=== PATIENT | male | born 1930 | race Caucasian/White ===

== ENCOUNTER 2018-01-12 13:34 | Inpatient (IN) ==
--- NOTE | 2018-01-12 13:52 | DR.MBACK ---
HPI - Time Seen Time seen: 14:40 - PCP Primary Care Physician: ANUM GUNN - HPI Comment HPI Comment: PATIENT FELL YESTERDAY. DENIES CHEST PAIN, HEADACHE OR ABDOMINAL PAIN. FEELS WEAK CURRENTLY. NO DYSURIA. - Complaint Chief Complaint Doctors Comments: PATIENT FELL AT HOME AND WAS UNABLE TO GET UP. LOWER BACK PAIN. Chief Complaint:: EMS OUT TO PT FOR LIFE ASSIST FOR SEVERAL DAY'S PT'S SITTER STATES ON 01/11/18 PT HAS FELL AND WAS NOT ABLE TO GET UP AND HER BROTHER FOUND HIM IN FOUR HOURS ,, PTS SITTER STATES HE USUALLY CAN WALK , AND DO FOR HIS SELF BUT NOT NOW AND PT ONLY C/O HIS BUTTOCKS HURTING AND HE STATES " YAW HAVE ONE HOUR AND I NEED TO GO"..BR - Reviewed Nurses Notes Review: Yes - Source History Provided: Patient, Friend, EMS - Mode of Arrival Mode of Arrival: EMS - Timing Onset of Chief Complaint: 01/11/18 - Duration Duration: Constant - Location Back Pain Location: BACK - Severity Severity: Moderate - Quality Quality: Sharp - Context Onset: Spontaneous History of: None - Modifying Factors Worsened By: None - Associated Signs and Symptoms Back Pain Symptoms: None Numbness: None Weakness: None PMH - PMH Past Medical History: Yes Past Medical History: CHF Past Surgical History: No - Family History History of Family Medical Conditions: No - Social History Does patient currently use any type of tobacco product: Yes Have you used tobacco products in the last 12 months: Yes Type of Tobacco Use: Cigarettes Does any household member use tobacco: No Alcohol Use: None Do you use any recreational Drugs:: No Lives With: Alone Lives Where: Home - infectious screening In the last 2 months have you had wt loss of >10#?: NO Have you had fever, night sweats or hemotysis?: No Have you traveled outside the country in the last 6 months?: No ROS - Review of Systems Constitutional: Weakness, Fatigue. negative: Chills, Fever Eyes: No Symptoms Reported Respiratoy: Short of Breath Gastrointestinal/Abdominal: No Symptoms Reported Neurological: Weakness Musculoskeletal: Back Pain, Back Integumentary: No Symptoms Reported, Dryness Hematologic/Lymphatic: No Symptoms Reported, Easy Bruising Endocrine: No Symptoms Reported Psychiatric: No Symptoms Reported PE - General Limitations: No Limitations General Appearance: Alert - Head Head Exam: Normal Inspection - Eyes Eye exam: PERRL, EOMI. negative: Conjunctival Injection - ENT ENT Exam: Normal Oropharynx, Normal External Ear Exam, TM's Normal Bilaterally , Other (DECREASE HEARING.) - Chest Chest Inspection: Symmetric Chest Wall Rise - Respiratory Respiratory Exam: Normal Lung Sounds Bilat Respiratory Exam: Bilateral Rhonchi - Cardiovascular Cardiovascular Exam: Regular Rate, Normal Rhythm, Normal Heart Sounds - Abdominal Exam Abdominal Exam: Normal Bowel Sounds, Soft. negative: Tenderness - Rectal Rectal Exam: Deferred - Genitourinary Exam: Male: Deferred - Extremities Extremities Exam: Normal Inspection, Tenderness - Back Back Exam: Tenderness (LOWER SPINE), (R) CVA Tenderness, (L) CVA Tenderness, Paraspinal Tenderness - Neurological Neurological Exam: Alert, Oriented X3, Other (DECREASE HEARING.) - Psychiatric Psychiatric Exam: Normal Affect, Normal Mood - Skin Skin Exam: Dry - Vital Signs Vitals: Temperature 99.6 F Pulse Rate [Apical] 79 Pulse Rate [Left] 98 Pulse Rate 98 Respiratory Rate 23 Blood Pressure [Left Arm] 113/61 Blood Pressure 91/57 O2 Sat by Pulse Oximetry 97 MDM - Additional Information Additional Information Obtained From: Relations Manager - Differential Diagnosis Differential Diagnosis: Fracture (LOWER BACK.), Musculoskeletal Pain (LOWER BACK.), Pyelonephritis, Strain (LOWER BACK), Urolithiasis. negative: Bowel Obstruction (DEHYDRATION, HYPOTENSION.) Course - Treatment Treatment: SEE ORDERS. - Consultation Consultation Comments: CTA WITH 1/2 DOSE OF DYE DYE TO RENAL FUNCTION. PATIENT TO BE HYDRATED AFTER TEST. - Education/Counseling Education/Counseling: Patient, Family, Education Educated On: Diagnosis, Needs for Follow Up ROR - Labs Reviewed Laboratory Results Reviewed?: Yes Result Diagrams: 01/16/18 13:40 01/16/18 13:40 - XRAY XRAY Findings: REPORT DISCUSS WITH PATIENT. - EKG Rhythm: ST (EKG NOTED.) - Labs Reviewed Laboratory: 01/13/18 18:15 Stool Stool Culture - Final 01/13/18 18:15 Stool - Final WBC 5.0 X10^3/uL (3.6-10.0) 01/16/18 13:40 RBC 5.86 X10^6/uL (4.7-6.0) 01/16/18 13:40 Hgb 17.6 g/dL (13.5-18.0) D 01/16/18 13:40 Hct 51.1 % (42.0-54.0) 01/16/18 13:40 MCV 87.2 fL (80.0-100.0) 01/16/18 13:40 MCH 30.1 pg (27.0-34.0) 01/16/18 13:40 MCHC 34.5 g/dL (33.0-35.0) 01/16/18 13:40 RDW 16.7 % (11.6-16.5) H 01/16/18 13:40 Plt Count 227 X10^3/uL (150.0-450.0) 01/16/18 13:40 MPV 7.7 fL (7.4-11.0) 01/16/18 13:40 Neut % (Auto) 80.2 % (42.0-75.0) H 01/16/18 13:40 Lymph % (Auto) 16.9 % (21.0-51.0) L 01/16/18 13:40 [place] % (Auto) 2.7 % (0.0-13.0) 01/16/18 13:40 Eos % (Auto) 0.0 % (0.9-2.9) L 01/16/18 13:40 Baso % (Auto) 0.2 % (0.2-1.0) 01/16/18 13:40 Neut # (Auto) 4.0 x10^3/uL (2.2-4.8) 01/16/18 13:40 Lymph # (Auto) 0.8 X10^3/uL (1.3-2.9) L 01/16/18 13:40 [place] # (Auto) 0.1 x10^3/uL (0.3-0.8) L 01/16/18 13:40 Eos # (Auto) 0.0 x10^3/uL (0.0-0.2) 01/16/18 13:40 Baso # (Auto) 0.0 X10^3/uL (0.0-0.1) 01/16/18 13:40 Absolute Nucleated RBC 0.2 /100WBC 01/16/18 13:40 Sample Site Rfemoral 01/16/18 16:15 ABG pH 6.800 (7.35-7.45) L* 01/16/18 16:15 ABG pCO2 115.0 mmHg (35.0-45.0) H* 01/16/18 16:15 ABG pO2 58.0 mmHg (80.0-100.0) L 01/16/18 16:15 ABG HCO3 Not Reportable 01/16/18 16:15 ABG O2 Saturation Not Reportable 01/16/18 16:15 ABG Base Excess Not Reportable 01/16/18 16:15 Soren Test Not Reportable 01/16/18 16:15 A-a Gradient Not Reportable 01/16/18 16:15 FiO2 100.000 01/16/18 16:15 Blood Gas Comments Sunshine well ah 01/16/18 16:15 Sodium 126 mmol/L (136-145) L 01/16/18 13:40 Corrected Sodium 127 mmol/L (136-145) L 01/16/18 13:40 Potassium 3.8 mmol/L (3.5-5.1) 01/16/18 13:40 Chloride 93 mmol/L (98-107) L 01/16/18 13:40 Carbon Dioxide 18.9 mmol/L (21-32) L 01/16/18 13:40 BUN 31 mg/dL (7-18) H 01/16/18 13:40 Creatinine 1.30 mg/dL (0.70-1.30) 01/16/18 13:40 Est GFR (MDRD) Af Amer > 60 (>60) 01/16/18 13:40 Est GFR (MDRD) Non-Af 56 (>60) L 01/16/18 13:40 Glucose 130 mg/dL (65-99) H 01/16/18 13:40 Calcium 9.4 mg/dL (8.5-10.1) 01/16/18 13:40 Corrected Calcium 10.3 mg/dL (8.5-10.1) H 01/16/18 04:54 Magnesium 2.0 mg/dL (1.7-2.9) 01/15/18 05:37 Total Bilirubin 1.00 mg/dL (0.2-1.0) 01/16/18 04:54 AST 20 Units/L (15-37) 01/16/18 04:54 ALT 20 Units/L (12-78) 01/16/18 04:54 Alkaline Phosphatase 96 Units/L (46-116) 01/16/18 04:54 Creatine Kinase 538 Units/L (39-308) H 01/13/18 04:45 CK-MB (CK-2) 4.8 ng/mL (0-4.0) H* 01/13/18 04:45 CK/CKMB % Calc 0.9 % (<4) 01/13/18 04:45 Troponin I 0.02 ng/mL (0-1.5) 01/13/18 04:45 Total Protein 5.7 g/dL (6.4-8.2) L 01/16/18 04:54 Albumin 1.9 g/dL (3.4-5.0) L 01/16/18 04:54 Globulin 3.8 g/dL (2.5-4.5) 01/16/18 04:54 Albumin/Globulin Ratio 0.5 Ratio (1.1-2.1) L 01/16/18 04:54 Specimen Type Catherized urine 01/13/18 10:14 Urine Color Candice (YELLOW) 01/13/18 10:14 Urine Appearance Slightly hazy (CLEAR) 01/13/18 10:14 Urine pH 5.0 (5.0 - 8.0) 01/13/18 10:14 Ur Specific [place] 1.020 (1.000-1.030) 01/13/18 10:14 Urine Protein 2+ (NEGATIVE) 01/13/18 10:14 Urine Glucose (UA) Negative (NEGATIVE) 01/13/18 10:14 Urine Ketones 1+ (NEGATIVE) 01/13/18 10:14 Urine Occult Blood 3+ (NEGATIVE) 01/13/18 10:14 Urine Nitrite Negative (NEGATIVE) 01/13/18 10:14 Urine Bilirubin 2+ (NEGATIVE) 01/13/18 10:14 Urine Urobilinogen 3+ (NORMAL) 01/13/18 10:14 Ur Leukocyte Esterase 1+ (NEGATIVE) 01/13/18 10:14 Urine RBC 20-30 /HPF (NONE SEEN) 01/13/18 10:14 Urine WBC 3-5 /HPF (NONE SEEN) 01/13/18 10:14 Ur Squamous Epith Cells Few /HPF (NEGATIVE) 01/13/18 10:14 Urine Bacteria Trace /HPF (NEGATIVE) 01/13/18 10:14 Hyaline Casts Few /LPF (NEGATIVE) 01/13/18 10:14 Urine Mucus Moderate /HPF (NEGATIVE) 01/13/18 10:14 Ur Culture Indicated? No/not indicated 01/13/18 10:14 Stool Description 20g,unformed,pastey, 01/13/18 18:15 Stl Occult Blood (IFOB) Positive (NEGATIVE) A 01/13/18 18:15 Stool for White Cells Positive (NEGATIVE) A 01/13/18 18:15 Stl C. diff Tox B Gene Negative (NEGATIVE) 01/13/18 18:15 Stl C. diff [id number] Negative (NEGATIVE) 01/13/18 18:15 Cryptosporid parvum Ag Negative (NEGATIVE) 01/13/18 18:15 Giardia lamblia Ag Negative (NEGATIVE) 01/13/18 18:15 - Diagnosis Discharge Problem: Dehydration, Abnormal cardiac enzyme level, Hypotension Back pain Qualifiers: Back pain location: low back pain Chronicity: acute Back pain laterality: bilateral Sciatica presence: without sciatica Qualified Code(s): M54.5 - Low back pain - Discharge Plan Disposition: 09 ADMITTED INPATIENT Condition: Stable
[2018-01-12 14:45] LABS: BASOPHILS % (AUTO) 0.3 % (0.2-1.0); HEMATOCRIT 47.1 % (42.0-54.0); HEMOGLOBIN 15.8 g/dL (13.5-18.0); LYMPHOCYTES # (AUTO) 0.9 X10^3/uL (1.3-2.9); LYMPHOCYTES % (AUTO) 8.5 % (21.0-51.0); MEAN CORPUSCULAR HEMOGLOBIN 28.8 pg (27.0-34.0); MEAN CORPUSCULAR HGB CONC 33.5 g/dL (33.0-35.0); MEAN CORPUSCULAR VOLUME 86.2 fL (80.0-100.0); MEAN PLATELET VOLUME 8.1 fL (7.4-11.0); MONOCYTES # (AUTO) 0.5 x10^3/uL (0.3-0.8); MONOCYTES % (AUTO) 4.9 % (0.0-13.0); NEUTROPHILS # (AUTO) 8.7 x10^3/uL (2.2-4.8); NEUTROPHILS % (AUTO) 86.3 % (42.0-75.0); PLATELET COUNT 240 X10^3/uL (150.0-450.0); RED BLOOD COUNT 5.47 X10^6/uL (4.7-6.0); RED CELL DISTRIBUTION WIDTH 16.7 % (11.6-16.5); WHITE BLOOD COUNT 10.1 X10^3/uL (3.6-10.0)
--- NOTE | 2018-01-12 15:06 | RAD ---
HISTORY: Chest pain Study: Chest AP portable Comparison: 09/01/2016 Findings: The heart is within normal limits in size. The bree are normal. The aorta is is calcified. The aortic knob has increased in size since the prior examination and a calcification appears somewhat more med ial. Some of this could be due to a slight difference in rotation an a more apical lordotic image how ever The possibility of an aortic dissection should be considered. CTA chest with contrast is recomme nded for further evaluation. The lung mccarty are clear. No pleural effusions are identified. Air dens ity under the right hemidiaphragm represents colon interposition. IMPRESSION: Apparent increase in size of the aortic knob since the prior examination. CTA chest with contrast is recommended in order to evaluate for dissection. Reported By:
[2018-01-12 15:16] LABS: CALCIUM 10.2 mg/dL (8.5-10.1); CARBON DIOXIDE 20.1 mmol/L (21-32); CREATININE 1.9 mg/dL (0.70-1.30); TROPONIN I 0.05 ng/mL (0-1.5)
--- NOTE | 2018-01-12 15:24 | CT ---
HISTORY: Back pain status post fall. Study: CT lumbar spine without contrast Comparison: None available. Technique: Multiple axial images of the lumbar spine were obtained from the thoracolumbar junction t o the sacrum without the administration of IV contrast. Sagittal and coronal reformats were performe d and reviewed. Dose reduction techniques including Automated Exposure Control (AEC) and adjustment of mA and kV were utilized. Findings: Moderate levocurvature of the lumbar spine. No acute fracture or listhesis. Multilevel moderate to se steven degenerative changes of the lumbar spine. Multilevel spinal canal stenosis to 8 mm and bilateral multilevel mild to severe neural foraminal narrowing. 8.0 cm simple appearing cyst is seen within th e left kidney and a 3.9 cm simple appearing cyst is seen within the right kidney. Remaining kidneys a re unremarkable. Postsurgical changes within the abdomen. Remaining soft tissue structures are unrema rkable. IMPRESSION: No acute osseous abnormality. Reported By:
[2018-01-12 15:25] LABS: ALBUMIN 2.7 g/dL (3.4-5.0); COR CA(FOR HYPOALB) 11.2 mg/dL (8.5-10.1); TOTAL PROTEIN 6.8 g/dL (6.4-8.2)
[2018-01-12 15:27] LABS: CREATINE KINASE MB 5.1 ng/mL (0-4.0)
[2018-01-12] MEDS ORDERED: NS 100 ML IV 100 ML IV ONE (16:50)
[2018-01-12] MEDS ORDERED: TORADOL 60 MG VIAL IM ONE (16:56)
[2018-01-12] MEDS ORDERED: DECADRON INJ IM ONE (16:56)
[2018-01-12] MEDS ORDERED: TORADOL 30 MG VIAL ONE (17:02)
[2018-01-12] MEDS ORDERED: DECADRON INJ ONE (17:03)
[2018-01-12] MEDS ORDERED: NS 1000 ML 1,000 ML ONE (17:16)
[2018-01-12] MEDS ORDERED: NS 1000 ML 1,000 ML IV ONE ×2 (17:22→19:08)
[2018-01-12 17:30] LABS: CKMB % 0.9 % (<4); TROPONIN I 0.05 ng/mL (0-1.5)
[2018-01-12 17:34] LABS: CREATINE KINASE MB 6.3 ng/mL (0-4.0)
--- NOTE | 2018-01-12 17:39 | CT ---
HISTORY: Abnormal chest x-ray showing enlarged aortic knob Study: CTA chest Comparison: Same day radiograph Technique: Multiple axial images of the chest were obtained after the administration of IV contrast. 3D reconstructions were performed utilizing radial maximum intensity projection imaging. Dose reduct ion techniques including Automated Exposure Control (AEC) and adjustment of mA and kV were utilized. Findings: Contrast opacification of the pulmonary arteries is adequate to the level of the segmental branches. No evidence of acute pulmonary emboli. Heart size is normal. There is aneurysmal dilation of the asce nding aorta measuring up to 4.3 cm measured on the coronal images. Evidence of aortic dissection or i ntramural hematoma. There are mild and present. No infiltrate, effusion or pneumothorax is identified . Airways are patent. The soft tissues and osseous structures appear intact. There is a hypodense lobular left upper pole r enal mass measuring 8.4 cm with attenuation 22 Hounsfield units. IMPRESSION: 1. Mild aneurysmal dilation of ascending aorta up to 4.3 cm. No dissection or acute pulmonary emboli. 2. Mild emphysematous changes. 3. Partially visualized left renal mass as described, possibly complex cyst but incompletely characte rized. Nonemergent renal protocol CT or MRI is recommended for further evaluation. Reported By:
[2018-01-12] MEDS ORDERED: NORCO 5/325 MG TAB PO PRN (21:01)
[2018-01-12 21:36] VITALS: BMI 25.4
[2018-01-12] MEDS: NS 1000 ML 1,000 ML IV SCH (23:00)
[2018-01-12 23:40] LABS: CKMB % 0.9 % (<4); TROPONIN I 0.04 ng/mL (0-1.5)
[2018-01-12 23:46] LABS: CREATINE KINASE MB 6.8 ng/mL (0-4.0)
[2018-01-13 05:19] LABS: BASOPHILS % (AUTO) 0.3 % (0.2-1.0); EOSINOPHILS % (AUTO) 0.2 % (0.9-2.9); HEMATOCRIT 41.4 % (42.0-54.0); HEMOGLOBIN 14.3 g/dL (13.5-18.0); LYMPHOCYTES # (AUTO) 1.6 X10^3/uL (1.3-2.9); LYMPHOCYTES % (AUTO) 19.9 % (21.0-51.0); MEAN CORPUSCULAR HEMOGLOBIN 29.7 pg (27.0-34.0); MEAN CORPUSCULAR HGB CONC 34.5 g/dL (33.0-35.0); MEAN CORPUSCULAR VOLUME 86.1 fL (80.0-100.0); MEAN PLATELET VOLUME 8.5 fL (7.4-11.0); MONOCYTES # (AUTO) 0.5 x10^3/uL (0.3-0.8); MONOCYTES % (AUTO) 6.1 % (0.0-13.0); NEUTROPHILS # (AUTO) 5.9 x10^3/uL (2.2-4.8); NEUTROPHILS % (AUTO) 73.5 % (42.0-75.0); PLATELET COUNT 183 X10^3/uL (150.0-450.0); RED BLOOD COUNT 4.81 X10^6/uL (4.7-6.0); RED CELL DISTRIBUTION WIDTH 16.6 % (11.6-16.5)
[2018-01-13 05:50] LABS: ALANINE AMINOTRANSFERASE 22 Units/L (12-78); ALKALINE PHOSPHATASE 79 Units/L (46-116); ASPARTATE AMINO TRANSFERASE 53 Units/L (15-37); BLOOD UREA NITROGEN 45 mg/dL (7-18); CALCIUM 8.8 mg/dL (8.5-10.1); CARBON DIOXIDE 16.8 mmol/L (21-32); CHLORIDE 102 mmol/L (98-107); COR CA(FOR HYPOALB) 10.4 mg/dL (8.5-10.1); CREATININE 1.39 mg/dL (0.70-1.30); SODIUM 131 mmol/L (136-145); TOTAL PROTEIN 5.7 g/dL (6.4-8.2); eGFR NON BLACK RACES 52 (>60)
[2018-01-13 06:03] LABS: TROPONIN I 0.02 ng/mL (0-1.5)
[2018-01-13 06:25] LABS: CKMB % 0.9 % (<4); CREATINE KINASE MB 4.8 ng/mL (0-4.0)
[2018-01-13] MEDS ORDERED: BUTT CREAM (COMPOUND) ONE (09:58)
[2018-01-13] MEDS: BUTT CREAM (COMPOUND) TOP PRN (10:12)
[2018-01-13 10:22] LABS: BILIRUBIN,URINE 2+ (NEGATIVE); BLOOD/HEMOGLOBIN,URINE 3+ (NEGATIVE); GLUCOSE, URINE NEGATIVE (NEGATIVE); KETONES,URINE 1+ (NEGATIVE); LEUKOCYTE ESTERASE ,URINE 1+ (NEGATIVE); NITRITES,URINE NEGATIVE (NEGATIVE); PROTEIN,URINE 2+ (NEGATIVE); UROBILINOGEN,URINE 3+ (NORMAL)
[2018-01-13 10:26] LABS: APPEARANCE,URINE SLIGHTLY HAZY (CLEAR); COLOR,URINE AMBER (YELLOW)
[2018-01-13 10:33] LABS: BACTERIA,URINE TRACE /HPF (NEGATIVE); HYALINE CASTS, URINE FEW /LPF (NEGATIVE); MUCUS,URINE MODERATE /HPF (NEGATIVE); RBC,URINE 20-30 /HPF (NONE SEEN); SQUAMOUS EPITHELIAL CELL,UR FEW /HPF (NEGATIVE)
[2018-01-13 18:40] LABS: STOOL FOR WBC POSITIVE (NEGATIVE)
[2018-01-13 19:27] LABS: CRYPTOSPORIDIUM PARVUM ANTIGEN NEGATIVE (NEGATIVE); GIARDIA LAMBLIA ANTIGEN NEGATIVE (NEGATIVE)
--- NOTE | 2018-01-13 21:54 | DR.H&P ---
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, LUMBAR DDD, HARD OF HEARING - Social History Does patient currently use any type of tobacco product: No (cigars(chews on) no light) Have you used tobacco products in the last 12 months: No Type of Tobacco Use: Cigars Does any household member use tobacco: No Alcohol Use: None - Medications Home Medications: No Known Drug Allergies Allergy (Verified 01/12/18 18:05) CONTINUE taking the following medications NK 01/12/18 [History] - Review of Systems Constitutional: Weakness Eyes: No Symptoms Reported ENT: No Symptoms Reported Respiratory: No Symptoms Reported Cardiovascular: No Symptoms Reported Gastrointestinal: No Symptoms Reported Genitourinary: No Symptoms Reported Musculoskeletal: Back Pain Skin: No Symptoms Reported Neurological: No Symptoms Reported - Physical Exam Vital Signs: Temperature 97.6 F Pulse Rate [Apical] 74 Pulse Rate [Left] 98 Pulse Rate 98 Respiratory Rate 12 Blood Pressure [Left Arm] 108/56 Blood Pressure 91/57 O2 Sat by Pulse Oximetry 99 Oriented: Normal Eyes: Normal Ear: Normal (hard of hearing) Nose: Normal Throat: Normal Respiratory: Clear Throughout Cardiovascular: Normal : Normal Auscultation: Bowel Sounds: Normal Palpation: Normal Tenderness: Normal Skin: Decreased Turgur Musculoskeletal: Back:Lumbar, Tender Psychiatric: Normal Mood Description: Calm Affect: Normal Speech Pattern: Clear - Assessment/Plan (1) Dehydration Status: Acute Plan: IV HYDRATION (2) Back pain Qualifiers: Back pain location: low back pain Chronicity: acute Back pain laterality : bilateral Sciatica presence: without sciatica Qualified Code(s): M54.5 - Low back pain Status: Acute Plan: PAIN MED INDICATED - Allergies Allergies/Adverse Reactions: Allergies Allergy/AdvReac Type Severity Reaction Status Date / Time No Known Drug Allergies Allergy Verified 01/12/18 18:05
--- NOTE | 2018-01-13 21:59 | PCM.PROG ---
Progress Note - Progress Note for Day of Date of Exam: 01/13/18 - Subjective Subjective: THE PATIENT IS AN 87YO WM WHO WAS ADMITTED AFTER HAVING BEEN FOUND LYING IN THE FLOOR AFTER A FALL. PATIENT IS SITTING UP IN BED EATING LUNCH. IS NOTABLY HARD OF HEARING. DOES QUESTION HOW HE IS HYDRATED. STAFF VOICE THAT HE IS HAVING MULTIPLE LOOSE BMS THAT ARE STRONG IN SMELL. PATIENT DENIES ANY COMPLAINTS. - Past Medical Family Social History Past Med/Fam/Surg Hx: No changes since H&P Allergies: Allergies No Known Drug Allergies Allergy (Verified 01/12/18 18:05) - Review of Systems ROS: No change since H&P - Vital Signs and I&O's Vital Signs: Temperature 97.6 F Pulse Rate [Apical] 74 Pulse Rate [Left] 98 Pulse Rate 98 Respiratory Rate 12 Blood Pressure [Left Arm] 108/56 Blood Pressure 91/57 O2 Sat by Pulse Oximetry 99 Intake and Output: Intake & Output 01/11/18 01/12/18 01/13/18 01/14/18 11:59 11:59 11:59 11:59 Intake Total 506 / 506 640 / 640 Output Total 700 / 700 Balance 506 / 506 -60 / -60 - Physical Exam Oriented: Normal Eyes: Normal Ear: Normal (hard of hearing) Nose: Normal Throat: Normal, Other (POOR DENTITION) Cardiovascular: Normal : Normal Auscultation: Bowel Sounds: Normal Palpation: Normal Tenderness: Normal Skin: Decreased Turgur Musculoskeletal: Back:Lumbar, Tender Psychiatric: Normal Mood Description: Calm Affect: Normal Speech Pattern: Clear - Laboratory and Diagnostics Result Diagrams: 01/13/18 04:45 01/13/18 04:45 Labs: 01/13/18 18:15 Stool - Final Laboratory WBC 8.0 X10^3/uL (3.6-10.0) 01/13/18 04:45 RBC 4.81 X10^6/uL (4.7-6.0) 01/13/18 04:45 Hgb 14.3 g/dL (13.5-18.0) 01/13/18 04:45 Hct 41.4 % (42.0-54.0) L 01/13/18 04:45 MCV 86.1 fL (80.0-100.0) 01/13/18 04:45 MCH 29.7 pg (27.0-34.0) 01/13/18 04:45 MCHC 34.5 g/dL (33.0-35.0) 01/13/18 04:45 RDW 16.6 % (11.6-16.5) H 01/13/18 04:45 Plt Count 183 X10^3/uL (150.0-450.0) 01/13/18 04:45 MPV 8.5 fL (7.4-11.0) 01/13/18 04:45 Neut % (Auto) 73.5 % (42.0-75.0) 01/13/18 04:45 Lymph % (Auto) 19.9 % (21.0-51.0) L 01/13/18 04:45 [place] % (Auto) 6.1 % (0.0-13.0) 01/13/18 04:45 Eos % (Auto) 0.2 % (0.9-2.9) L 01/13/18 04:45 Baso % (Auto) 0.3 % (0.2-1.0) 01/13/18 04:45 Neut # (Auto) 5.9 x10^3/uL (2.2-4.8) H 01/13/18 04:45 Lymph # (Auto) 1.6 X10^3/uL (1.3-2.9) 01/13/18 04:45 [place] # (Auto) 0.5 x10^3/uL (0.3-0.8) 01/13/18 04:45 Eos # (Auto) 0.0 x10^3/uL (0.0-0.2) 01/13/18 04:45 Baso # (Auto) 0.0 X10^3/uL (0.0-0.1) 01/13/18 04:45 Absolute Nucleated RBC 0.0 /100WBC 01/13/18 04:45 Sodium 131 mmol/L (136-145) L 01/13/18 04:45 Corrected Sodium TNP 01/13/18 04:45 Potassium 4.1 mmol/L (3.5-5.1) 01/13/18 04:45 Chloride 102 mmol/L (98-107) 01/13/18 04:45 Carbon Dioxide 16.8 mmol/L (21-32) L 01/13/18 04:45 BUN 45 mg/dL (7-18) H 01/13/18 04:45 Creatinine 1.39 mg/dL (0.70-1.30) H 01/13/18 04:45 Est GFR (MDRD) Af Amer > 60 (>60) 01/13/18 04:45 Est GFR (MDRD) Non-Af 52 (>60) L 01/13/18 04:45 Glucose 88 mg/dL (65-99) 01/13/18 04:45 Calcium 8.8 mg/dL (8.5-10.1) 01/13/18 04:45 Corrected Calcium 10.4 mg/dL (8.5-10.1) H 01/13/18 04:45 Total Bilirubin 1.20 mg/dL (0.2-1.0) H 01/13/18 04:45 AST 53 Units/L (15-37) H 01/13/18 04:45 ALT 22 Units/L (12-78) 01/13/18 04:45 Alkaline Phosphatase 79 Units/L (46-116) 01/13/18 04:45 Creatine Kinase 538 Units/L (39-308) H 01/13/18 04:45 CK-MB (CK-2) 4.8 ng/mL (0-4.0) H* 01/13/18 04:45 CK/CKMB % Calc 0.9 % (<4) 01/13/18 04:45 Troponin I 0.02 ng/mL (0-1.5) 01/13/18 04:45 Total Protein 5.7 g/dL (6.4-8.2) L 01/13/18 04:45 Albumin 2.0 g/dL (3.4-5.0) L 01/13/18 04:45 Globulin 3.7 g/dL (2.5-4.5) 01/13/18 04:45 Albumin/Globulin Ratio 0.5 Ratio (1.1-2.1) L 01/13/18 04:45 Specimen Type Catherized urine 01/13/18 10:14 Urine Color Candice (YELLOW) 01/13/18 10:14 Urine Appearance Slightly hazy (CLEAR) 01/13/18 10:14 Urine pH 5.0 (5.0 - 8.0) 01/13/18 10:14 Ur Specific [place] 1.020 (1.000-1.030) 01/13/18 10:14 Urine Protein 2+ (NEGATIVE) 01/13/18 10:14 Urine Glucose (UA) Negative (NEGATIVE) 01/13/18 10:14 Urine Ketones 1+ (NEGATIVE) 01/13/18 10:14 Urine Occult Blood 3+ (NEGATIVE) 01/13/18 10:14 Urine Nitrite Negative (NEGATIVE) 01/13/18 10:14 Urine Bilirubin 2+ (NEGATIVE) 01/13/18 10:14 Urine Urobilinogen 3+ (NORMAL) 01/13/18 10:14 Ur Leukocyte Esterase 1+ (NEGATIVE) 01/13/18 10:14 Urine RBC 20-30 /HPF (NONE SEEN) 01/13/18 10:14 Urine WBC 3-5 /HPF (NONE SEEN) 01/13/18 10:14 Ur Squamous Epith Cells Few /HPF (NEGATIVE) 01/13/18 10:14 Urine Bacteria Trace /HPF (NEGATIVE) 01/13/18 10:14 Hyaline Casts Few /LPF (NEGATIVE) 01/13/18 10:14 Urine Mucus Moderate /HPF (NEGATIVE) 01/13/18 10:14 Ur Culture Indicated? No/not indicated 01/13/18 10:14 Stool Description 20g,unformed,pastey, 01/13/18 18:15 Stl Occult Blood (IFOB) Positive (NEGATIVE) A 01/13/18 18:15 Stool for White Cells Positive (NEGATIVE) A 01/13/18 18:15 Stl C. diff Tox B Gene Negative (NEGATIVE) 01/13/18 18:15 Stl C. diff [id number] Negative (NEGATIVE) 01/13/18 18:15 Cryptosporid parvum Ag Negative (NEGATIVE) 01/13/18 18:15 Giardia lamblia Ag Negative (NEGATIVE) 01/13/18 18:15 - Plan (1) Dehydration Status: Acute Plan: IV HYDRATION (2) Back pain Status: Acute Qualifiers: Back pain location: low back pain Chronicity: acute Back pain laterality : bilateral Sciatica presence: without sciatica Qualified Code(s): M54.5 - Low back pain Plan: PAIN MED INDICATED (3) Degenerative disc disease, lumbar Status: Chronic Plan: CHRONIC (4) Acute kidney injury Status: Acute Plan: IV HYDRATION, MONITOR CHEMISTRY (5) Abdominal aortic aneurysm (AAA) 3.0 cm to 5.5 cm in diameter in male Status: Acute (6) Hypotension Status: Resolved Qualifiers: Hypotension type: unspecified hypotension type Qualified Code(s): I95.9 - Hypotension, unspecified
[2018-01-14 09:06] LABS: BASOPHILS % (AUTO) 0.3 % (0.2-1.0); EOSINOPHILS % (AUTO) 0.3 % (0.9-2.9); HEMATOCRIT 39.9 % (42.0-54.0); HEMOGLOBIN 13.8 g/dL (13.5-18.0); LYMPHOCYTES # (AUTO) 1.3 X10^3/uL (1.3-2.9); LYMPHOCYTES % (AUTO) 17.8 % (21.0-51.0); MEAN CORPUSCULAR HEMOGLOBIN 29.8 pg (27.0-34.0); MEAN CORPUSCULAR HGB CONC 34.7 g/dL (33.0-35.0); MEAN CORPUSCULAR VOLUME 86.1 fL (80.0-100.0); MONOCYTES # (AUTO) 0.4 x10^3/uL (0.3-0.8); MONOCYTES % (AUTO) 5.1 % (0.0-13.0); NEUTROPHILS # (AUTO) 5.5 x10^3/uL (2.2-4.8); NEUTROPHILS % (AUTO) 76.5 % (42.0-75.0); PLATELET COUNT 177 X10^3/uL (150.0-450.0); RED BLOOD COUNT 4.64 X10^6/uL (4.7-6.0); RED CELL DISTRIBUTION WIDTH 16.6 % (11.6-16.5); WHITE BLOOD COUNT 7.2 X10^3/uL (3.6-10.0)
[2018-01-14 09:33] LABS: BLOOD UREA NITROGEN 34 mg/dL (7-18); CALCIUM 8.8 mg/dL (8.5-10.1); CARBON DIOXIDE 17.9 mmol/L (21-32); CHLORIDE 101 mmol/L (98-107); CREATININE 1.03 mg/dL (0.70-1.30); SODIUM 130 mmol/L (136-145); eGFR NON BLACK RACES > 60 (>60)
[2018-01-14 10:31] LABS: ALANINE AMINOTRANSFERASE 24 Units/L (12-78); ALKALINE PHOSPHATASE 88 Units/L (46-116); ASPARTATE AMINO TRANSFERASE 32 Units/L (15-37); COR CA(FOR HYPOALB) 10.4 mg/dL (8.5-10.1); TOTAL PROTEIN 5.7 g/dL (6.4-8.2)
[2018-01-14] MEDS ORDERED: POTASSIUM CHL 40 MEQ/NS 0.45% 500 ML IV PRN (10:38)
[2018-01-14] MEDS ORDERED: K-LYTE EFFERVESCENT PO PRN (10:38)
[2018-01-14] MEDS ORDERED: POTASSIUM CHL 60 MEQ/NS 0.45% 500 ML IV PRN (10:38)
[2018-01-14] MEDS ORDERED: POTASSIUM CHLORIDE LIQ 20 MEQ UDC PO PRN (10:38)
[2018-01-14] MEDS ORDERED: K-RIDER 10 MEQ/NS 100 ML 10 MEQ/100 ML BAG IV PRN ×2 (10:38→11:15)
[2018-01-14] MEDS: MAGNESIUM SULFATE 1 GRAM/100 mL PREMIX 1 GM/100 ML BAG IV PRN ×2 (11:29→13:05)
[2018-01-14] MEDS: BUTT CREAM (COMPOUND) TOP PRN ×2 (14:10→22:00)
--- NOTE | 2018-01-14 22:56 | PCM.PROG ---
Progress Note - Progress Note for Day of Date of Exam: 01/14/18 - Subjective Subjective: THE PATIENT IS AN 87YO WM WHO WAS ADMITTED AFTER HAVING BEEN FOUND LYING IN THE FLOOR AFTER A FALL. WAS HYPOTENSIVE AND DEHYDRATED. IS NOTABLY HARD OF HEARING. THE PATIENT IS EXTREMELY WEAK. PERSONAL FRIEND STATES OVER LAST THREE WEEKS HE HAS NOT BEEN ABLE TO AMBULATE. DOES LIVE ALONE. PATIENT DENIES ANY COMPLAINTS. - Past Medical Family Social History Past Med/Fam/Surg Hx: No changes since H&P Allergies: Allergies No Known Drug Allergies Allergy (Verified 01/12/18 18:05) - Review of Systems ROS: No change since H&P - Vital Signs and I&O's Vital Signs: Temperature 97.7 F Pulse Rate [Apical] 76 Pulse Rate [Left] 82 Pulse Rate 98 Respiratory Rate 22 Blood Pressure [Left Arm] 120/55 Blood Pressure 91/57 O2 Sat by Pulse Oximetry 97 Intake and Output: Intake & Output 01/12/18 01/13/18 01/14/18 01/15/18 11:59 11:59 11:59 11:59 Intake Total 506 / 506 2182 / 2182 312 / 312 Output Total 1100 / 1100 200 / 200 Balance 506 / 506 1082 / 1082 112 / 112 - Physical Exam Oriented: Normal Eyes: Normal Ear: Normal (hard of hearing) Nose: Normal Throat: Normal, Other (POOR DENTITION) Cardiovascular: Normal : Normal Auscultation: Bowel Sounds: Normal Palpation: Normal Tenderness: Normal Skin: Decreased Turgur Musculoskeletal: Back:Lumbar, Tender, Motor Deficit (BLE WEAKNESS) Psychiatric: Normal Mood Description: Calm Affect: Normal Speech Pattern: Appropriate - Laboratory and Diagnostics Result Diagrams: 01/14/18 08:45 01/14/18 08:45 Labs: 01/13/18 18:15 Stool Stool Culture - Preliminary 01/13/18 18:15 Stool - Final Laboratory WBC 7.2 X10^3/uL (3.6-10.0) 01/14/18 08:45 RBC 4.64 X10^6/uL (4.7-6.0) L 01/14/18 08:45 Hgb 13.8 g/dL (13.5-18.0) 01/14/18 08:45 Hct 39.9 % (42.0-54.0) L 01/14/18 08:45 MCV 86.1 fL (80.0-100.0) 01/14/18 08:45 MCH 29.8 pg (27.0-34.0) 01/14/18 08:45 MCHC 34.7 g/dL (33.0-35.0) 01/14/18 08:45 RDW 16.6 % (11.6-16.5) H 01/14/18 08:45 Plt Count 177 X10^3/uL (150.0-450.0) 01/14/18 08:45 MPV 8.0 fL (7.4-11.0) 01/14/18 08:45 Neut % (Auto) 76.5 % (42.0-75.0) H 01/14/18 08:45 Lymph % (Auto) 17.8 % (21.0-51.0) L 01/14/18 08:45 Nobles % (Auto) 5.1 % (0.0-13.0) 01/14/18 08:45 Eos % (Auto) 0.3 % (0.9-2.9) L 01/14/18 08:45 Baso % (Auto) 0.3 % (0.2-1.0) 01/14/18 08:45 Neut # (Auto) 5.5 x10^3/uL (2.2-4.8) H 01/14/18 08:45 Lymph # (Auto) 1.3 X10^3/uL (1.3-2.9) 01/14/18 08:45 Nobles # (Auto) 0.4 x10^3/uL (0.3-0.8) 01/14/18 08:45 Eos # (Auto) 0.0 x10^3/uL (0.0-0.2) 01/14/18 08:45 Baso # (Auto) 0.0 X10^3/uL (0.0-0.1) 01/14/18 08:45 Absolute Nucleated RBC 0.0 /100WBC 01/14/18 08:45 Sodium 130 mmol/L (136-145) L 01/14/18 08:45 Corrected Sodium TNP 01/14/18 08:45 Potassium 3.6 mmol/L (3.5-5.1) 01/14/18 08:45 Chloride 101 mmol/L (98-107) 01/14/18 08:45 Carbon Dioxide 17.9 mmol/L (21-32) L 01/14/18 08:45 BUN 34 mg/dL (7-18) H 01/14/18 08:45 Creatinine 1.03 mg/dL (0.70-1.30) 01/14/18 08:45 Est GFR (MDRD) Af Amer > 60 (>60) 01/14/18 08:45 Est GFR (MDRD) Non-Af > 60 (>60) 01/14/18 08:45 Glucose 95 mg/dL (65-99) 01/14/18 08:45 Calcium 8.8 mg/dL (8.5-10.1) 01/14/18 08:45 Corrected Calcium 10.4 mg/dL (8.5-10.1) H 01/14/18 08:45 Magnesium 1.8 mg/dL (1.7-2.9) 01/14/18 08:45 Total Bilirubin 1.10 mg/dL (0.2-1.0) H 01/14/18 08:45 AST 32 Units/L (15-37) 01/14/18 08:45 ALT 24 Units/L (12-78) 01/14/18 08:45 Alkaline Phosphatase 88 Units/L (46-116) 01/14/18 08:45 Creatine Kinase 538 Units/L (39-308) H 01/13/18 04:45 CK-MB (CK-2) 4.8 ng/mL (0-4.0) H* 01/13/18 04:45 CK/CKMB % Calc 0.9 % (<4) 01/13/18 04:45 Troponin I 0.02 ng/mL (0-1.5) 01/13/18 04:45 Total Protein 5.7 g/dL (6.4-8.2) L 01/14/18 08:45 Albumin 2.0 g/dL (3.4-5.0) L 01/14/18 08:45 Globulin 3.7 g/dL (2.5-4.5) 01/14/18 08:45 Albumin/Globulin Ratio 0.5 Ratio (1.1-2.1) L 01/14/18 08:45 Specimen Type Catherized urine 01/13/18 10:14 Urine Color Candice (YELLOW) 01/13/18 10:14 Urine Appearance Slightly hazy (CLEAR) 01/13/18 10:14 Urine pH 5.0 (5.0 - 8.0) 01/13/18 10:14 Ur Specific [place] 1.020 (1.000-1.030) 01/13/18 10:14 Urine Protein 2+ (NEGATIVE) 01/13/18 10:14 Urine Glucose (UA) Negative (NEGATIVE) 01/13/18 10:14 Urine Ketones 1+ (NEGATIVE) 01/13/18 10:14 Urine Occult Blood 3+ (NEGATIVE) 01/13/18 10:14 Urine Nitrite Negative (NEGATIVE) 01/13/18 10:14 Urine Bilirubin 2+ (NEGATIVE) 01/13/18 10:14 Urine Urobilinogen 3+ (NORMAL) 01/13/18 10:14 Ur Leukocyte Esterase 1+ (NEGATIVE) 01/13/18 10:14 Urine RBC 20-30 /HPF (NONE SEEN) 01/13/18 10:14 Urine WBC 3-5 /HPF (NONE SEEN) 01/13/18 10:14 Ur Squamous Epith Cells Few /HPF (NEGATIVE) 01/13/18 10:14 Urine Bacteria Trace /HPF (NEGATIVE) 01/13/18 10:14 Hyaline Casts Few /LPF (NEGATIVE) 01/13/18 10:14 Urine Mucus Moderate /HPF (NEGATIVE) 01/13/18 10:14 Ur Culture Indicated? No/not indicated 01/13/18 10:14 Stool Description 20g,unformed,pastey, 01/13/18 18:15 Stl Occult Blood (IFOB) Positive (NEGATIVE) A 01/13/18 18:15 Stool for White Cells Positive (NEGATIVE) A 01/13/18 18:15 Stl C. diff Tox B Gene Negative (NEGATIVE) 01/13/18 18:15 Stl C. diff [id number] Negative (NEGATIVE) 01/13/18 18:15 Cryptosporid parvum Ag Negative (NEGATIVE) 01/13/18 18:15 Giardia lamblia Ag Negative (NEGATIVE) 01/13/18 18:15 - Plan (1) Dehydration Status: Acute Plan: IV HYDRATION (2) Back pain Status: Acute Qualifiers: Back pain location: low back pain Chronicity: acute Back pain laterality : bilateral Sciatica presence: without sciatica Qualified Code(s): M54.5 - Low back pain Plan: PAIN MED INDICATED (3) Degenerative disc disease, lumbar Status: Chronic Plan: CHRONIC (4) Acute kidney injury Status: Acute Plan: IV HYDRATION, MONITOR CHEMISTRY (5) Abdominal aortic aneurysm (AAA) 3.0 cm to 5.5 cm in diameter in male Status: Acute (6) Hypotension Status: Resolved Qualifiers: Hypotension type: unspecified hypotension type Qualified Code(s): I95.9 - Hypotension, unspecified (7) Generalized muscle weakness Status: Acute Narrative Support Text: INABILITY TO CARE FOR SELF Plan: PHYSICAL THERAPY. CASE MGMT CONSULT.
[2018-01-14] MEDS: NS 1000 ML 1,000 ML IV SCH ×2 (23:49→23:57)
[2018-01-15 06:31] LABS: BASOPHILS % (AUTO) 0.2 % (0.2-1.0); EOSINOPHILS % (AUTO) 0.6 % (0.9-2.9); HEMATOCRIT 37.3 % (42.0-54.0); HEMOGLOBIN 12.9 g/dL (13.5-18.0); LYMPHOCYTES # (AUTO) 1.7 X10^3/uL (1.3-2.9); LYMPHOCYTES % (AUTO) 25.6 % (21.0-51.0); MEAN CORPUSCULAR HEMOGLOBIN 29.9 pg (27.0-34.0); MEAN CORPUSCULAR HGB CONC 34.7 g/dL (33.0-35.0); MEAN PLATELET VOLUME 8.4 fL (7.4-11.0); MONOCYTES # (AUTO) 0.4 x10^3/uL (0.3-0.8); MONOCYTES % (AUTO) 5.5 % (0.0-13.0); NEUTROPHILS # (AUTO) 4.4 x10^3/uL (2.2-4.8); NEUTROPHILS % (AUTO) 68.1 % (42.0-75.0); PLATELET COUNT 146 X10^3/uL (150.0-450.0); RED BLOOD COUNT 4.33 X10^6/uL (4.7-6.0); RED CELL DISTRIBUTION WIDTH 15.8 % (11.6-16.5); WHITE BLOOD COUNT 6.5 X10^3/uL (3.6-10.0)
[2018-01-15 07:14] LABS: ALANINE AMINOTRANSFERASE 18 Units/L (12-78); ALBUMIN 1.7 g/dL (3.4-5.0); ALKALINE PHOSPHATASE 80 Units/L (46-116); ASPARTATE AMINO TRANSFERASE 22 Units/L (15-37); BLOOD UREA NITROGEN 26 mg/dL (7-18); CARBON DIOXIDE 18.7 mmol/L (21-32); CHLORIDE 97 mmol/L (98-107); COR CA(FOR HYPOALB) 9.8 mg/dL (8.5-10.1); CREATININE 0.86 mg/dL (0.70-1.30); SODIUM 127 mmol/L (136-145); TOTAL PROTEIN 5.1 g/dL (6.4-8.2); eGFR NON BLACK RACES > 60 (>60)
[2018-01-15] MEDS: TAB-A-VITE PO SCH (12:30)
--- NOTE | 2018-01-15 13:13 | PCM.PROG ---
Progress Note - Progress Note for Day of Date of Exam: 01/15/18 - Subjective Subjective: THE PATIENT IS AN 87YO WM WHO WAS ADMITTED AFTER HAVING BEEN FOUND LYING IN THE FLOOR AFTER A FALL. WAS HYPOTENSIVE AND DEHYDRATED. IS NOTABLY HARD OF HEARING. THE PATIENT IS EXTREMELY WEAK. PERSONAL FRIEND STATES OVER LAST THREE WEEKS HE HAS NOT BEEN ABLE TO AMBULATE. DOES LIVE ALONE. PATIENT IS ASKING FOR MEDS TO HELP. REQUEST FRIEND WHO IS AN EMPLOYEE AT [employer] BE TALKED WITH. PATIENT DENIES ANY COMPLAINTS. - Past Medical Family Social History Past Med/Fam/Surg Hx: No changes since H&P Allergies: Allergies No Known Drug Allergies Allergy (Verified 01/12/18 18:05) - Review of Systems ROS: No change since H&P - Vital Signs and I&O's Vital Signs: Temperature 98.5 F Pulse Rate [Right Brachial] 79 Pulse Rate [Apical] 76 Pulse Rate [Left] 76 Pulse Rate 98 Respiratory Rate 20 Blood Pressure [Right Arm] 129/63 Blood Pressure [Left Arm] 128/63 Blood Pressure 91/57 O2 Sat by Pulse Oximetry 97 Intake and Output: Intake & Output 01/13/18 01/14/18 01/15/18 01/16/18 11:59 11:59 11:59 11:59 Intake Total 506 / 506 2182 / 2182 1092 / 1092 Output Total 1100 / 1100 875 / 875 Balance 506 / 506 1082 / 1082 217 / 217 - Physical Exam Oriented: Normal Eyes: Normal Ear: Normal (hard of hearing) Nose: Normal Throat: Normal, Other (POOR DENTITION) Cardiovascular: Normal : Normal Auscultation: Bowel Sounds: Normal Palpation: Normal Tenderness: Normal Skin: Decreased Turgur Musculoskeletal: Back:Lumbar, Tender, Motor Deficit (BLE WEAKNESS) Psychiatric: Normal Mood Description: Calm Affect: Normal Speech Pattern: Appropriate - Laboratory and Diagnostics Result Diagrams: 01/15/18 05:37 01/15/18 05:37 Labs: 01/13/18 18:15 Stool Stool Culture - Preliminary 01/13/18 18:15 Stool - Final Laboratory WBC 6.5 X10^3/uL (3.6-10.0) 01/15/18 05:37 RBC 4.33 X10^6/uL (4.7-6.0) L 01/15/18 05:37 Hgb 12.9 g/dL (13.5-18.0) L 01/15/18 05:37 Hct 37.3 % (42.0-54.0) L 01/15/18 05:37 MCV 86.0 fL (80.0-100.0) 01/15/18 05:37 MCH 29.9 pg (27.0-34.0) 01/15/18 05:37 MCHC 34.7 g/dL (33.0-35.0) 01/15/18 05:37 RDW 15.8 % (11.6-16.5) 01/15/18 05:37 Plt Count 146 X10^3/uL (150.0-450.0) L 01/15/18 05:37 MPV 8.4 fL (7.4-11.0) 01/15/18 05:37 Neut % (Auto) 68.1 % (42.0-75.0) 01/15/18 05:37 Lymph % (Auto) 25.6 % (21.0-51.0) 01/15/18 05:37 [place] % (Auto) 5.5 % (0.0-13.0) 01/15/18 05:37 Eos % (Auto) 0.6 % (0.9-2.9) L 01/15/18 05:37 Baso % (Auto) 0.2 % (0.2-1.0) 01/15/18 05:37 Neut # (Auto) 4.4 x10^3/uL (2.2-4.8) 01/15/18 05:37 Lymph # (Auto) 1.7 X10^3/uL (1.3-2.9) 01/15/18 05:37 [place] # (Auto) 0.4 x10^3/uL (0.3-0.8) 01/15/18 05:37 Eos # (Auto) 0.0 x10^3/uL (0.0-0.2) 01/15/18 05:37 Baso # (Auto) 0.0 X10^3/uL (0.0-0.1) 01/15/18 05:37 Absolute Nucleated RBC 0.3 /100WBC 01/15/18 05:37 Sodium 127 mmol/L (136-145) L 01/15/18 05:37 Corrected Sodium TNP 01/15/18 05:37 Potassium 3.7 mmol/L (3.5-5.1) 01/15/18 05:37 Chloride 97 mmol/L (98-107) L 01/15/18 05:37 Carbon Dioxide 18.7 mmol/L (21-32) L 01/15/18 05:37 BUN 26 mg/dL (7-18) H 01/15/18 05:37 Creatinine 0.86 mg/dL (0.70-1.30) 01/15/18 05:37 Est GFR (MDRD) Af Amer > 60 (>60) 01/15/18 05:37 Est GFR (MDRD) Non-Af > 60 (>60) 01/15/18 05:37 Glucose 83 mg/dL (65-99) 01/15/18 05:37 Calcium 8.0 mg/dL (8.5-10.1) L 01/15/18 05:37 Corrected Calcium 9.8 mg/dL (8.5-10.1) 01/15/18 05:37 Magnesium 2.0 mg/dL (1.7-2.9) 01/15/18 05:37 Total Bilirubin 1.00 mg/dL (0.2-1.0) 01/15/18 05:37 AST 22 Units/L (15-37) 01/15/18 05:37 ALT 18 Units/L (12-78) 01/15/18 05:37 Alkaline Phosphatase 80 Units/L (46-116) 01/15/18 05:37 Creatine Kinase 538 Units/L (39-308) H 01/13/18 04:45 CK-MB (CK-2) 4.8 ng/mL (0-4.0) H* 01/13/18 04:45 CK/CKMB % Calc 0.9 % (<4) 01/13/18 04:45 Troponin I 0.02 ng/mL (0-1.5) 01/13/18 04:45 Total Protein 5.1 g/dL (6.4-8.2) L 01/15/18 05:37 Albumin 1.7 g/dL (3.4-5.0) L 01/15/18 05:37 Globulin 3.4 g/dL (2.5-4.5) 01/15/18 05:37 Albumin/Globulin Ratio 0.5 Ratio (1.1-2.1) L 01/15/18 05:37 Specimen Type Catherized urine 01/13/18 10:14 Urine Color Candice (YELLOW) 01/13/18 10:14 Urine Appearance Slightly hazy (CLEAR) 01/13/18 10:14 Urine pH 5.0 (5.0 - 8.0) 01/13/18 10:14 Ur Specific [place] 1.020 (1.000-1.030) 01/13/18 10:14 Urine Protein 2+ (NEGATIVE) 01/13/18 10:14 Urine Glucose (UA) Negative (NEGATIVE) 01/13/18 10:14 Urine Ketones 1+ (NEGATIVE) 01/13/18 10:14 Urine Occult Blood 3+ (NEGATIVE) 01/13/18 10:14 Urine Nitrite Negative (NEGATIVE) 01/13/18 10:14 Urine Bilirubin 2+ (NEGATIVE) 01/13/18 10:14 Urine Urobilinogen 3+ (NORMAL) 01/13/18 10:14 Ur Leukocyte Esterase 1+ (NEGATIVE) 01/13/18 10:14 Urine RBC 20-30 /HPF (NONE SEEN) 01/13/18 10:14 Urine WBC 3-5 /HPF (NONE SEEN) 01/13/18 10:14 Ur Squamous Epith Cells Few /HPF (NEGATIVE) 01/13/18 10:14 Urine Bacteria Trace /HPF (NEGATIVE) 01/13/18 10:14 Hyaline Casts Few /LPF (NEGATIVE) 01/13/18 10:14 Urine Mucus Moderate /HPF (NEGATIVE) 01/13/18 10:14 Ur Culture Indicated? No/not indicated 01/13/18 10:14 Stool Description 20g,unformed,pastey, 01/13/18 18:15 Stl Occult Blood (IFOB) Positive (NEGATIVE) A 01/13/18 18:15 Stool for White Cells Positive (NEGATIVE) A 01/13/18 18:15 Stl C. diff Tox B Gene Negative (NEGATIVE) 01/13/18 18:15 Stl C. diff [id number] Negative (NEGATIVE) 01/13/18 18:15 Cryptosporid parvum Ag Negative (NEGATIVE) 01/13/18 18:15 Giardia lamblia Ag Negative (NEGATIVE) 01/13/18 18:15 - Plan (1) Dehydration Status: Acute Plan: IV HYDRATION (2) Back pain Status: Acute Qualifiers: Back pain location: low back pain Chronicity: acute Back pain laterality : bilateral Sciatica presence: without sciatica Qualified Code(s): M54.5 - Low back pain Plan: PAIN MED INDICATED (3) Degenerative disc disease, lumbar Status: Chronic Plan: CHRONIC (4) Acute kidney injury Status: Acute Plan: IV HYDRATION, MONITOR CHEMISTRY (5) Abdominal aortic aneurysm (AAA) 3.0 cm to 5.5 cm in diameter in male Status: Acute (6) Hypotension Status: Resolved Qualifiers: Hypotension type: unspecified hypotension type Qualified Code(s): I95.9 - Hypotension, unspecified (7) Generalized muscle weakness Status: Acute Plan: PHYSICAL THERAPY. CASE MGMT CONSULT.
[2018-01-15] MEDS: ASPIRIN EC 81 MG PO SCH (17:15)
[2018-01-16] MEDS: NS 1000 ML 1,000 ML IV SCH ×2 (00:30→05:29)
[2018-01-16 05:21] LABS: BASOPHILS % (AUTO) 0.1 % (0.2-1.0); EOSINOPHILS % (AUTO) 0.2 % (0.9-2.9); HEMATOCRIT 42.2 % (42.0-54.0); HEMOGLOBIN 14.7 g/dL (13.5-18.0); LYMPHOCYTES # (AUTO) 1.2 X10^3/uL (1.3-2.9); LYMPHOCYTES % (AUTO) 16.3 % (21.0-51.0); MEAN CORPUSCULAR HEMOGLOBIN 29.9 pg (27.0-34.0); MEAN CORPUSCULAR HGB CONC 34.9 g/dL (33.0-35.0); MEAN CORPUSCULAR VOLUME 85.7 fL (80.0-100.0); MONOCYTES # (AUTO) 0.3 x10^3/uL (0.3-0.8); MONOCYTES % (AUTO) 4.6 % (0.0-13.0); NEUTROPHILS # (AUTO) 5.8 x10^3/uL (2.2-4.8); NEUTROPHILS % (AUTO) 78.8 % (42.0-75.0); PLATELET COUNT 185 X10^3/uL (150.0-450.0); RED BLOOD COUNT 4.92 X10^6/uL (4.7-6.0); RED CELL DISTRIBUTION WIDTH 16.6 % (11.6-16.5); WHITE BLOOD COUNT 7.4 X10^3/uL (3.6-10.0)
[2018-01-16 05:23] LABS: ALANINE AMINOTRANSFERASE 20 Units/L (12-78); ALBUMIN 1.9 g/dL (3.4-5.0); ALKALINE PHOSPHATASE 96 Units/L (46-116); ASPARTATE AMINO TRANSFERASE 20 Units/L (15-37); BLOOD UREA NITROGEN 26 mg/dL (7-18); CALCIUM 8.6 mg/dL (8.5-10.1); CHLORIDE 95 mmol/L (98-107); COR CA(FOR HYPOALB) 10.3 mg/dL (8.5-10.1); CREATININE 0.93 mg/dL (0.70-1.30); SODIUM 126 mmol/L (136-145); TOTAL PROTEIN 5.7 g/dL (6.4-8.2); eGFR NON BLACK RACES > 60 (>60)
[2018-01-16] MEDS: ASPIRIN EC 81 MG PO SCH (10:16)
[2018-01-16] MEDS: TAB-A-VITE PO SCH (10:16)
[2018-01-16] MEDS ORDERED: NS 1000 ML 1,000 ML IV SCH (11:45)
--- NOTE | 2018-01-16 11:55 | RAD ---
HISTORY: Shortness of breath Study: Chest AP portable Comparison: 01/12/2018 Findings: The patient is rotated to the left. The heart is within normal limits in size. The aorta is calcified . The lungs are free of acute alveolar infiltrates. No pleural effusions are identified. The bony tho rax is unremarkable with the exception of bilateral chronic rotator cuff disease. IMPRESSION: No acute infiltrates Reported By:
[2018-01-16] MEDS ORDERED: LASIX IVP ONE ×3 (13:13→13:16)
[2018-01-16 13:22] LABS: ABG BASE EXCESS -10.1 mmol/L (-2.0-2.0)
[2018-01-16 13:24] LABS: ABG HCO3 13.3 mmol/L (22-26)
[2018-01-16 13:52] LABS: BASOPHILS % (AUTO) 0.2 % (0.2-1.0); HEMATOCRIT 51.1 % (42.0-54.0); HEMOGLOBIN 17.6 g/dL (13.5-18.0); LYMPHOCYTES # (AUTO) 0.8 X10^3/uL (1.3-2.9); LYMPHOCYTES % (AUTO) 16.9 % (21.0-51.0); MEAN CORPUSCULAR HEMOGLOBIN 30.1 pg (27.0-34.0); MEAN CORPUSCULAR HGB CONC 34.5 g/dL (33.0-35.0); MEAN CORPUSCULAR VOLUME 87.2 fL (80.0-100.0); MEAN PLATELET VOLUME 7.7 fL (7.4-11.0); MONOCYTES # (AUTO) 0.1 x10^3/uL (0.3-0.8); MONOCYTES % (AUTO) 2.7 % (0.0-13.0); NEUTROPHILS % (AUTO) 80.2 % (42.0-75.0); PLATELET COUNT 227 X10^3/uL (150.0-450.0); RED BLOOD COUNT 5.86 X10^6/uL (4.7-6.0); RED CELL DISTRIBUTION WIDTH 16.7 % (11.6-16.5)
[2018-01-16] MEDS ORDERED: MORPHINE SULFATE INJ 2 MG INJ IVP PRN (13:57)
[2018-01-16] MEDS ORDERED: CLEOCIN 600 MG IV PREMIX 600 MG/50 ML BAG IV SCH (14:00)
[2018-01-16 14:01] LABS: BLOOD UREA NITROGEN 31 mg/dL (7-18); CALCIUM 9.4 mg/dL (8.5-10.1); CARBON DIOXIDE 18.9 mmol/L (21-32); CHLORIDE 93 mmol/L (98-107); COR NA(FOR HYPERGLY) 127 mmol/L (136-145); SODIUM 126 mmol/L (136-145); eGFR NON BLACK RACES 56 (>60)
[2018-01-16] MEDS ORDERED: XOPENEX 1.25 MG/3 ML NEBULE NEB ONE (14:29)
[2018-01-16] MEDS ORDERED: LEVAQUIN PREMIX IV 500 MG 500 MG/100 ML BAG IV SCH (14:29)
[2018-01-16] MEDS ORDERED: Atrovent NEB TX 0.02% ONE (14:29)
[2018-01-16] MEDS ORDERED: HALDOL INJ IM PRN (14:30)
[2018-01-16] MEDS ORDERED: NS 500 ML IV 500 ML IV ONE (14:32)
[2018-01-16] MEDS ORDERED: LOVENOX INJ 40 MG SYR SC SCH (14:32)
[2018-01-16] MEDS ORDERED: PROVENTIL NEB TX 0.083% 2.5MG/ 3ML NEB SCH (14:36)
[2018-01-16] MEDS ORDERED: NS 100 ML IV 100 ML IV ONE (14:37)
[2018-01-16] MEDS ORDERED: PROVENTIL NEB TX 0.083% 2.5MG/ 3ML NEB PRN (14:41)
[2018-01-16] MEDS ORDERED: BROVANA IN SCH (14:45)
[2018-01-16] MEDS ORDERED: PULMICORT NEB TX 0.5 MG NEB SCH (14:45)
[2018-01-16] MEDS ORDERED: XOPENEX 1.25 MG/3 ML NEBULE NEB PRN (14:48)
[2018-01-16] MEDS ORDERED: NS 500 ML IV 500 ML IV SCH (15:00)
[2018-01-16] MEDS ORDERED: Atrovent NEB TX 0.02% NEB SCH ×2 (15:00→17:00)
[2018-01-16] MEDS ORDERED: XOPENEX 1.25 MG/3 ML NEBULE NEB SCH (15:00)
[2018-01-16 15:52] VITALS: BP 149/69
--- NOTE | 2018-01-16 16:01 | CT ---
CTA chest with contrast per pulmonary embolism protocol Indication: Decreasing O2 saturation Comparison: 01/12/2018 Technique: Multiple axial images of the chest were obtained from the thoracic inlet to the upper abdo men after the administration of IV contrast.Coronal and Sagittal MIP images were also provided. Findings: No central or segmental pulmonary arterial filling defect is identified. There is normal caliber of t he pulmonary artery without CT evidence or right heart strain. Since recent prior examination there has been development of peribronchial ground-glass opacities and peribronchial thickening scattered throughout both lungs most severely affecting the right middle an d lower lobes consistent with multi focal bronchopneumonia. Tiny left-sided pleural effusion. No pneu mothorax. Stable size of the ascending thoracic aortic aneurysm. Coronary artery atherosclerotic disease and em physematous change also stable. No new osseous abnormality. IMPRESSION: 1. No PTE identified. 2. Since recent prior CT examination there has been development of multi focal areas of bronchial thi ckening and peribronchial consolidation most severely affecting the right middle and lower lobes, thi s is most consistent with acute bronchopneumonia. Given distribution clinical correlation for aspirat ion is also recommended. 3. Very small left-sided pleural effusion. 4. Stable incidental findings including mild aneurysmal dilatation of the ascending thoracic aorta al robbi with COPD not change from recent prior exam. Reported By:
--- NOTE | 2018-01-16 16:17 | CT ---
CT abdomen and pelvis with contrast Indication: Low oxygen saturation Comparison: None available Technique: Multiple axial images of the abdomen and pelvis were obtained from the lung bases to the pubic symphy sis after the administration of IV contrast. Findings: No focal hepatic lesion is identified. There is mild intrahepatic and moderate extrahepatic bile duct dilatation to the level the ampulla, no obstructing stone or mass identified. Previous cholecystecto my is noted. The spleen, pancreas the addition adrenal glands are normal. The right kidney contains a round hypoattenuating lesion within the lower pole consistent a cyst. The left kidney also contains a large multilobulated hypoattenuating lesion consistent with a cyst. Neither demonstrates evidence o f nephrolithiasis hydronephrosis or solid mass. Upper GI tract demonstrates moderate fluid dilatation of the distal thoracic esophagus, stomach and small bowel no decompressed loops of small bowel are i dentified. The rectum also contains increased mucosal enhancement, circumferential bowel wall thicken ing and fluid distention. No enlarged abdominal or pelvic lymph node is identified. Abdominal aorta i s normal in caliber with moderate calcified atherosclerotic disease. No free air is identified. No lo calizing fluid identified. No acute osseous abnormality. Impression: 1.Fluid dilatation of the thoracic esophagus, stomach, small bowel colon and rectum, this can be seen in the setting of generalized ileus however given circumferential thickening of the rectum an underl kierra rectal neoplasm or obstruction to be excluded, correlation with clinical findings and potentiall y proctoscopy for further evaluation is recommended. 2. Mild intrahepatic with moderate extrahepatic bile duct dilatation without obstructing stone or mas s, correlation cholestatic function test is recommended as this can be seen in setting of prior grzegorz cystectomy. 3. Infiltrates within the lung bases as described on chest CT. Given the findings within the distal t horacic esophagus and stomach this again raises the concern for aspiration. 4. Multiple other incidental findings as described above. Urinary bladder is collapsed around a Blanchard catheter. Central dystrophic calcification are noted with in the prostate gland. The IMPRESSION: Reported By:
[2018-01-16] MEDS ORDERED: LASIX IVP SCH (21:00)
--- NOTE | 2018-01-21 00:46 | DR.DECEASE ---
Form - Labs Result Diagrams: 01/16/18 13:40 01/16/18 13:40 - Hospital Course Hospital Course: tHE PATIENT WAS AN 87YO WM WHO WAS ADMITTED AFTER HAVING BEEN FOUND LYING IN THE FLOOR AFTER A FALL. WAS HYPOTENSIVE AND DEHYDRATED. WAS NOTABLY HARD OF HEARING. THE PATIENT WAS EXTREMELY WEAK. PERSONAL FRIEND STATES OVER LAST THREE WEEKS HE HAS NOT BEEN ABLE TO AMBULATE. DID LIVE ALONE. PATIENT WAS NOTED TO BE HYPONATREMIC AND IVFS WERE INCREASED TO 50ML/HR. PATIENT ON 04/26 WAS FOUND TO BECOME HYPOXIC. DID HAVE RAPID DECLINE AND WENT INTO CARDIOPLUMONARY ARREST. RESUCCITATION ATTEMPTS WERE FUTILE AND PATIENT WAS PRONOUCED . - Expiration Expiration Date: 01/16/18 Expiration Time: 16:28 Pronounced by: DR. BURRELL Preliminary Cause of : RESPIRATORY AREST - Admission Diagnosis Patient Problems: Problems Cardiopulmonary arrest (Acute) I46.9 Abnormal cardiac enzyme level (Acute) R74.8 Acute kidney injury (Acute) N17.9 Dehydration (Acute) E86.0 Abdominal aortic aneurysm (AAA) 3.0 cm to 5.5 cm in diameter in male (Acute) I71.4 Generalized muscle weakness (Acute) M62.81 Back pain (Acute) M54.9 Degenerative disc disease, lumbar (Chronic) M51.36 - Home Medications Home Medications: Home Medications Medication Instructions Recorded Type NK 01/12/18 History
== END 2018-01-16 17:35 | disposition expired | DRG 316 ==
LOC: ER 13:34 → ICU 13:34 → MED/SURG 01-14 14:40 → ICU 01-16 13:33
PROVIDERS: ADMIT Internal Medicine; ATTEND Internal Medicine
DX: R09.2 Respiratory arrest; R10.84 Generalized abdominal pain; I71.4 Abdominal aortic aneurysm, without rupture; M51.36 Other intervertebral disc degeneration, lumbar region; R26.89 Other abnormalities of gait and mobility; E86.0 Dehydration; M54.5 Low back pain; I95.89 Other hypotension; R53.1 Weakness; W18.39XA Other fall on same level, initial encounter; R94.31 Abnormal electrocardiogram [ECG] [EKG]
CPT/HCPCS: 36415; 36600; 71010; 71045; 71275; 72131; 74176; 74177; 80048; 80053; 81001; 82270; 82550; 82553; 82803; 83630; 83735; 84484; 85025; 87045; 87328; 87329; 87427; 87449; 87493; 87899; 93005; 93010; 94640; 94660; 94760; 96365; 97110; 97163; 99218; 99231; 99284; A4222; A4618; A7030; G0378; J1100; J1630; J1885; J1940; J2270; J3475; J3480; J7030; J7040; J7050; J7626; J7644; J8499; S0077